=== PATIENT | male | born 1965 | race Caucasian/White ===

== ENCOUNTER 2023-12-17 07:16 | Inpatient (IN) | payer OTHER ==
[~2023-12-17] VITALS: Ht 180.3 cm; Wt 104.3 kg
[2023-12-17] MEDS ORDERED: NEOSTIGMINE METHYLSULFATE 1 MG/ML, 10 ML VIAL ONE (07:22)
[2023-12-17] MEDS ORDERED: NS IRRIG SOLN 1000 ML IR ONE ×2 (07:22→09:51)
[2023-12-17] MEDS ORDERED: KETOROLAC TROMETHAMINE 30 MG VIAL ONE ×2 (07:22→09:51)
[2023-12-17] MEDS ORDERED: NS 1000 ML IV.SOLN IV ONE ×2 (07:22→09:51)
[2023-12-17] MEDS ORDERED: LR 1,000 ML IV.SOLN IV ONE ×2 (07:22→09:51)
[2023-12-17] MEDS ORDERED: BUPIVACAINE /PF 0.25% 10 ML VIAL INJ ONE (07:22)
[2023-12-17] MEDS ORDERED: CEFAZOLIN SOD 2 GM in D5W 50 ML IV ONE (08:45)
[2023-12-17] MEDS ORDERED: PROPOFOL 200MG/ 20ML VIAL (DIPRIVAN) IV ONE (09:51)
[2023-12-17] MEDS ORDERED: fentaNYL CITRATE/PF 100 MCG/2 ML AMP ONE (09:51)
[2023-12-17] MEDS ORDERED: ONDANSETRON HCL 4 MG/2 ML VIAL ONE (09:51)
[2023-12-17] MEDS ORDERED: ROCURONIUM BROMIDE 10 MG/ML (ZEMURON) ONE (09:51)
[2023-12-17] MEDS ORDERED: DEXAMETHASONE SOD PHOSPHATE 4 MG/ML VIAL ONE (09:51)
[2023-12-17] MEDS ORDERED: GLYCOPYRROLATE 0.2 MG/ML VIAL ONE (09:51)
[2023-12-17] MEDS ORDERED: SEVOFLURANE 15 MIN GAS INH ONE (09:51)
[2023-12-17] MEDS ORDERED: ACETAMINOPHEN I.V. 1000 MG 100 ML IV ONE (09:52)
[2023-12-17] MEDS ORDERED: DIATR MEGLU/DIATRIZ SOD 30 ML SOLUTION PO ONE (10:42)
[2023-12-17] MEDS ORDERED: HYDROmorphone 1 MG/ML INJ. CARTRIDGE IVP PRN ×2 (10:45)
[2023-12-17] MEDS ORDERED: NALOXONE HCL 0.4 MG/ML AMP (NARCAN) IVP PRN ×6 (10:45→11:30)
[2023-12-17] MEDS ORDERED: ONDANSETRON HCL 4 MG/2 ML VIAL IVP PRN (10:45)
[2023-12-17] MEDS ORDERED: hydrALAZINE HCL 20 MG/ML VIAL IV PRN (10:45)
[2023-12-17] MEDS ORDERED: HYDROcodone/ACETAMIN 5-325 MG TAB (NORCO/ VICODIN) PO PRN ×2 (11:30)
[2023-12-17] MEDS ORDERED: D5/0.45 NS 1,000 ML IV SCH (11:30)
[2023-12-17] MEDS ORDERED: HYDROmorphone 2 MG/ML VIAL ONE (12:07)
[2023-12-17] MEDS: HYDROmorphone 1 MG/ML INJ. CARTRIDGE IVP PRN (12:07)
[2023-12-17] MEDS: HYDROcodone/ACETAMIN 5-325 MG TAB (NORCO/ VICODIN) ONE (13:15)
[2023-12-17 14:22] VITALS: BP_SYST 159; PULSE 52; RESP 16; TEMP 96.8; O2SAT 96
== END 2023-12-17 15:05 | disposition home or self-care (01) | DRG 419 ==
LOC: SMU 07:16 → EDSTATUS 08:50
PROVIDERS: ADMIT Colon & Rectal Surgery; ATTEND Colon & Rectal Surgery
PROC: BF121ZZ Fluoroscopy of Gallbladder using Low Osmolar Contrast (ICD-10-PCS; 2023-12-17)
PROC: 0FT44ZZ Resection of Gallbladder, Percutaneous Endoscopic Approach (ICD-10-PCS; principal; 2023-12-17 09:53)
DX: K81.1 Chronic cholecystitis (principal)
CPT/HCPCS: 74300; 87081; 88304; C1727; C1758; J0131; J0690; J1100; J1171; J1885; J2405; J2704; J2710; J3010; J3490; J7030; J7060; J7120; Q9964